=== PATIENT | male | born 1980 | race Caucasian/White ===

== ENCOUNTER 2021-02-24 10:18 | Emergency (ER) | payer BC, MEDICAID ==
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
== END 2021-02-24 12:20 | disposition home or self-care (01) ==
LOC: JP.ED 10:18
DX: S70.12XA Contusion of left thigh, initial encounter (principal); S76.392A Other specified injury of muscle, fascia and tendon of the posterior muscle group at thigh level, left thigh, initial encounter; I10 Essential (primary) hypertension; Z79.899 Other long term (current) drug therapy; X58.XXXA Exposure to other specified factors, initial encounter; Y93.17 Activity, water skiing and wake boarding
CPT/HCPCS: 99283